=== PATIENT | female | born 1975 | race Caucasian/White ===

== ENCOUNTER 2017-10-09 11:34 | Emergency (ER) | payer BC ==
[~2017-10-09] VITALS: Ht 162.6 cm; Wt 93.5 kg
[~2017-10-09 11:34] MED LIST: CLARITIN10 M3 PO; LEXAPRO10 MG PO; LEXAPRO20 MG PO
[2017-10-09] MEDS ORDERED: FLEXERIL10 MG PO (15:01)
[2017-10-09] MEDS ORDERED: MOTRIN600 MG PO (15:01)
[2017-10-09 15:07] VITALS: BP 156/92
== END 2017-10-09 15:07 | disposition home or self-care (01) ==
LOC: EME 11:34
DX: S29.012A Strain of muscle and tendon of back wall of thorax, initial encounter (principal); X50.9XXA Other and unspecified overexertion or strenuous movements or postures, initial encounter; K58.9 Irritable bowel syndrome, unspecified; Z87.891 Personal history of nicotine dependence; Z88.1 Allergy status to other antibiotic agents
CPT/HCPCS: 71046; 99281; 99284